=== PATIENT | female | born 1980 | race Two or more races ===

== ENCOUNTER → 2020-03-14 | Outpatient (CLI) | payer OTHER | END | disposition home or self-care (01) | LOC: ECT 10:46 | DX: F33.2 Major depressive disorder, recurrent severe without psychotic features (principal); F41.9 Anxiety disorder, unspecified; Z79.899 Other long term (current) drug therapy; Z91.5 Personal history of self-harm; Z81.8 Family history of other mental and behavioral disorders ==

== ENCOUNTER 2020-03-24 08:51 | Outpatient (RCR) | payer OTHER ==
[~2020-03-24] VITALS: Ht 170.2 cm; Wt 64.0 kg
[~2020-03-24 08:51] MED LIST: Methohexital Sodium Syr 100mg/10ml IVP ONE; Midazolam 2mg/2ml Inj ONE; NS 500ML ONE; Succinylcholine 20mg/ml 10ml vial ONE
[2020-03-24] MEDS ORDERED: Methohexital Sodium Syr 100mg/10ml IVP ONE (08:52)
[2020-03-24] MEDS ORDERED: NS 500ML ONE (08:52)
[2020-03-24] MEDS ORDERED: Ketorolac 60mg Inj IM ONE (08:52)
[2020-03-24] MEDS ORDERED: Succinylcholine 20mg/ml 10ml vial ONE (08:52)
[2020-03-24 11:05] VITALS: BP 128/82
[2020-03-24 11:10] VITALS: BP 123/62
[2020-03-24 11:15] VITALS: BP 124/57
[2020-03-24 11:20] VITALS: BP 128/72
[2020-03-24 11:56] VITALS: BP 124/80
[2020-03-26] MEDS ORDERED: Midazolam 2mg/2ml Inj ONE (06:00)
[2020-03-26] MEDS ORDERED: Ketorolac 30mg Inj ONE (06:00)
[2020-03-26] MEDS ORDERED: NS 500ML ONE (06:00)
[2020-03-26] MEDS ORDERED: Methohexital Sodium Syr 100mg/10ml IVP ONE (06:00)
[2020-03-26] MEDS ORDERED: Succinylcholine 20mg/ml 10ml vial ONE (06:00)
[2020-03-26 11:19] VITALS: BP 112/76
[2020-03-26] MEDS ORDERED: Atropine Sulfate 0.4mg/ml inj IVP PRN (11:45)
[2020-03-26] MEDS ORDERED: Lidocaine 2% 100mg/5ml Carp IV PRN (11:45)
[2020-03-26 11:46] VITALS: BP 111/66
[2020-03-26 11:51] VITALS: BP 124/75
[2020-03-26 11:56] VITALS: BP 121/71
[2020-03-26 12:01] VITALS: BP 120/71
[2020-03-28] MEDS ORDERED: NS 500ML ONE (06:00)
[2020-03-28] MEDS ORDERED: Succinylcholine 20mg/ml 10ml vial ONE (06:00)
[2020-03-28] MEDS ORDERED: Methohexital Sodium Syr 100mg/10ml IVP ONE (06:00)
[2020-03-28] MEDS ORDERED: Ketorolac 30mg Inj ONE (06:00)
[2020-03-28] MEDS ORDERED: Midazolam 2mg/2ml Inj ONE (06:00)
[2020-03-28 10:31] VITALS: BP 121/82
[2020-03-28 10:43] VITALS: BP 127/73
[2020-03-28 10:48] VITALS: BP 122/70
[2020-03-28 10:53] VITALS: BP 113/58
[2020-03-28 10:58] VITALS: BP 106/56
[2020-03-31 08:49] VITALS: BP 130/88
[2020-03-31 09:03] VITALS: BP 134/79
[2020-03-31 09:08] VITALS: BP 135/78
[2020-03-31 09:13] VITALS: BP 133/79
[2020-03-31 09:18] VITALS: BP 134/75
[2020-04-02] MEDS ORDERED: Succinylcholine 20mg/ml 10ml vial ONE (06:00)
[2020-04-02] MEDS ORDERED: Ketorolac 30mg Inj ONE (06:00)
[2020-04-02] MEDS ORDERED: NS 500ML ONE (06:00)
[2020-04-02] MEDS ORDERED: Methohexital Sodium Syr 100mg/10ml IVP ONE (06:00)
[2020-04-02 10:04] VITALS: BP 131/86
[2020-04-02 10:17] VITALS: BP 139/78
[2020-04-02 10:22] VITALS: BP 134/83
[2020-04-02 10:27] VITALS: BP 132/82
[2020-04-02 10:32] VITALS: BP 137/74
[2020-04-04] MEDS ORDERED: NS 500ML ONE (06:00)
[2020-04-04] MEDS ORDERED: Methohexital Sodium Syr 100mg/10ml IVP ONE (06:00)
[2020-04-04] MEDS ORDERED: Midazolam 2mg/2ml Inj ONE (06:00)
[2020-04-04] MEDS ORDERED: Succinylcholine 20mg/ml 10ml vial ONE (06:00)
[2020-04-04] MEDS ORDERED: Ketorolac 30mg Inj ONE (06:00)
[2020-04-04 10:12] VITALS: BP 136/89
[2020-04-04 10:27] VITALS: BP 140/88
[2020-04-04 10:32] VITALS: BP 122/74
[2020-04-04 10:37] VITALS: BP 119/62
[2020-04-04 10:42] VITALS: BP 118/53
[2020-04-07] MEDS ORDERED: Ketorolac 60mg Inj IM ONE (09:00)
[2020-04-07] MEDS ORDERED: Succinylcholine 20mg/ml 10ml vial ONE (09:00)
[2020-04-07] MEDS ORDERED: NS 500ML ONE (09:00)
[2020-04-07] MEDS ORDERED: Methohexital Sodium Syr 100mg/10ml IVP ONE (09:00)
[2020-04-07 10:15] VITALS: BP 134/87
[2020-04-07] MEDS ORDERED: Atropine Sulfate 0.4mg/ml inj IVP PRN (10:39)
[2020-04-07] MEDS ORDERED: Lidocaine 2% 100mg/5ml Carp IV PRN (10:39)
[2020-04-07 10:40] VITALS: BP 138/78
[2020-04-07 10:45] VITALS: BP 139/71
[2020-04-07 10:50] VITALS: BP 135/74
[2020-04-07 10:55] VITALS: BP 135/84
[2020-04-09] MEDS ORDERED: Methohexital Sodium Syr 100mg/10ml IVP ONE (06:00)
[2020-04-09] MEDS ORDERED: Succinylcholine 20mg/ml 10ml vial ONE (06:00)
[2020-04-09] MEDS ORDERED: Ketorolac 30mg Inj ONE (06:00)
[2020-04-09] MEDS ORDERED: NS 500ML ONE (06:00)
[2020-04-09 10:18] VITALS: BP 148/94
[2020-04-09] MEDS ORDERED: Lidocaine 2% 100mg/5ml Carp IV PRN (10:44)
[2020-04-09] MEDS ORDERED: Atropine Sulfate 0.4mg/ml inj IVP PRN (10:44)
[2020-04-09 10:45] VITALS: BP 140/66
[2020-04-09 10:50] VITALS: BP 151/92
[2020-04-09 10:55] VITALS: BP 145/82
[2020-04-09 11:00] VITALS: BP 152/79
[2020-04-11] MEDS ORDERED: NS 500ML ONE (06:00)
[2020-04-11] MEDS ORDERED: Ketorolac 30mg Inj ONE (06:00)
[2020-04-11] MEDS ORDERED: Succinylcholine 20mg/ml 10ml vial ONE (06:00)
[2020-04-11] MEDS ORDERED: Methohexital Sodium Syr 100mg/10ml IVP ONE (06:00)
[2020-04-11 09:52] VITALS: BP 148/93
[2020-04-11 10:05] VITALS: BP 145/88
[2020-04-11 10:10] VITALS: BP 142/75
[2020-04-11 10:15] VITALS: BP 150/83
[2020-04-11 10:20] VITALS: BP 145/79
== END 2020-04-15 | disposition home or self-care (01) ==
LOC: ECT 08:51
DX: F33.2 Major depressive disorder, recurrent severe without psychotic features (principal); F41.9 Anxiety disorder, unspecified
CPT/HCPCS: 90870; J0330; J1885; J2250; J2405; J7040

== ENCOUNTER 2020-04-16 08:21 | Outpatient (RCR) | payer OTHER ==
[~2020-04-16] VITALS: Ht 170.2 cm; Wt 64.0 kg
[~2020-04-16 08:21] MED LIST changes: +Ketorolac 30mg Inj ONE; -Midazolam 2mg/2ml Inj ONE
[2020-04-16 10:44] VITALS: BP 125/88
[2020-04-16 11:02] VITALS: BP 156/91
[2020-04-16 11:07] VITALS: BP 130/67
[2020-04-16 11:12] VITALS: BP 127/79
[2020-04-16 11:17] VITALS: BP 126/55
[2020-04-21] MEDS ORDERED: NS 500ML ONE (06:00)
[2020-04-21] MEDS ORDERED: Methohexital Sodium Syr 100mg/10ml IVP ONE (06:00)
[2020-04-21] MEDS ORDERED: Succinylcholine 20mg/ml 10ml vial ONE (06:00)
[2020-04-21] MEDS ORDERED: Ketorolac 30mg Inj ONE (06:00)
[2020-04-21 08:46] VITALS: BP 108/74
[2020-04-21] MEDS ORDERED: Atropine Sulfate 0.4mg/ml inj IVP PRN (09:04)
[2020-04-21] MEDS ORDERED: Lidocaine 2% 100mg/5ml Carp IV PRN (09:04)
[2020-04-21 09:05] VITALS: BP 112/64
[2020-04-21 09:10] VITALS: BP 129/93
[2020-04-21 09:15] VITALS: BP 125/67
[2020-04-21 09:20] VITALS: BP 137/66
[2020-04-30] MEDS ORDERED: NS 500ML ONE (08:00)
[2020-04-30] MEDS ORDERED: Ketorolac 60mg Inj IM ONE (08:00)
[2020-04-30] MEDS ORDERED: Succinylcholine 20mg/ml 10ml vial ONE (08:00)
[2020-04-30] MEDS ORDERED: Methohexital Sodium Syr 100mg/10ml IVP ONE (08:00)
[2020-04-30] MEDS ORDERED: Midazolam 2mg/2ml Inj ONE (08:00)
[2020-04-30 11:10] VITALS: BP 123/88
[2020-04-30 11:23] VITALS: BP 114/73
[2020-04-30 11:28] VITALS: BP 120/74
[2020-04-30 11:33] VITALS: BP 120/63
[2020-04-30 11:38] VITALS: BP 112/61
[2020-05-07] MEDS ORDERED: Succinylcholine 20mg/ml 10ml vial ONE (07:00)
[2020-05-07] MEDS ORDERED: Methohexital Sodium Syr 100mg/10ml IVP ONE (07:00)
[2020-05-07] MEDS ORDERED: Ketorolac 60mg Inj IM ONE (07:00)
[2020-05-07] MEDS ORDERED: NS 500ML ONE (07:00)
[2020-05-07] MEDS ORDERED: Midazolam 2mg/2ml Inj ONE (07:00)
[2020-05-07 08:27] VITALS: BP 115/78
[2020-05-07] MEDS ORDERED: Lidocaine 2% 100mg/5ml Carp IV PRN (08:49)
[2020-05-07] MEDS ORDERED: Atropine Sulfate 0.4mg/ml inj IVP PRN (08:49)
[2020-05-07 08:50] VITALS: BP 117/66
[2020-05-07 08:55] VITALS: BP 114/65
[2020-05-07 09:00] VITALS: BP 137/72
[2020-05-07 09:05] VITALS: BP 133/91
[2020-05-16] VITALS (7 sets, daily range): BP systolic 104–120; BP diastolic 57–77
[2020-05-16] MEDS ORDERED: NS 500ML ONE (09:00)
[2020-05-16] MEDS ORDERED: Succinylcholine 20mg/ml 10ml vial ONE (09:00)
[2020-05-16] MEDS ORDERED: Methohexital Sodium Syr 100mg/10ml IVP ONE (09:00)
[2020-05-16] MEDS ORDERED: Ketorolac 60mg Inj IM ONE (09:00)
== END 2020-05-16 | disposition home or self-care (01) ==
LOC: ECT 08:21
DX: F33.2 Major depressive disorder, recurrent severe without psychotic features (principal)
CPT/HCPCS: 82962; 90870; J0330; J1885; J2250; J2405; J7040

== ENCOUNTER 2020-05-30 06:38 | Outpatient (RCR) | payer OTHER ==
[~2020-05-30] VITALS: Ht 30.5 cm; Wt 0.5 kg
[2020-06-02] VITALS (7 sets, daily range): BP systolic 110–124; BP diastolic 61–84
[2020-06-02] MEDS ORDERED: NS 500ML ONE (08:00)
[2020-06-02] MEDS ORDERED: Methohexital Sodium Syr 100mg/10ml IVP ONE (08:00)
[2020-06-02] MEDS ORDERED: Succinylcholine 20mg/ml 10ml vial ONE (08:00)
[2020-06-02] MEDS ORDERED: Ketorolac 60mg Inj IM ONE (08:00)
[2020-06-02] MEDS ORDERED: Atropine Sulfate 0.4mg/ml inj IVP PRN (10:09)
== END 2020-06-16 | disposition home or self-care (01) ==
LOC: ECT 06:38
DX: F33.2 Major depressive disorder, recurrent severe without psychotic features (principal)
CPT/HCPCS: 90870; J0330; J2405; J7040

== ENCOUNTER 2020-06-18 10:24 | Outpatient (RCR) | payer OTHER ==
[2020-06-18] VITALS (7 sets, daily range): BP systolic 113–131; BP diastolic 70–92
[~2020-06-18] VITALS: Ht 170.2 cm; Wt 64.0 kg
[~2020-06-18 10:24] MED LIST changes: +Methohexita Syr 100mg/10ml IVP ONE; -Methohexital Sodium Syr 100mg/10ml IVP ONE
[2020-07-09] VITALS (7 sets, daily range): BP systolic 112–132; BP diastolic 48–86
[2020-07-09] MEDS ORDERED: NS 500ML ONE (06:00)
[2020-07-09] MEDS ORDERED: Ketorolac 30mg Inj ONE (06:00)
[2020-07-09] MEDS ORDERED: Methohexita Syr 100mg/10ml IVP ONE (06:00)
[2020-07-09] MEDS ORDERED: Succinylcholine 20mg/ml 10ml vial ONE (06:00)
[2020-07-09] MEDS ORDERED: Midazolam 2mg/2ml Inj ONE (06:00)
[2020-07-09] MEDS ORDERED: Atropine Sulfate 0.4mg/ml inj IVP PRN (09:09)
== END 2020-07-16 | disposition home or self-care (01) ==
LOC: ECT 10:24
DX: F33.2 Major depressive disorder, recurrent severe without psychotic features (principal)
CPT/HCPCS: 90870; J0330; J1885; J2250; J2405; J7040

== ENCOUNTER 2020-08-01 06:39 | Outpatient (RCR) | payer OTHER ==
[~2020-08-01] VITALS: Ht 30.5 cm; Wt 0.5 kg
[2020-08-01] VITALS (7 sets, daily range): BP systolic 129–144; BP diastolic 73–90
[2020-08-01] MEDS ORDERED: Midazolam 2mg/2ml Inj ONE (06:40)
[2020-08-01] MEDS ORDERED: Ketorolac 60mg Inj IM ONE (06:40)
[2020-08-01] MEDS ORDERED: NS 500ML ONE (06:40)
[2020-08-01] MEDS ORDERED: Succinylcholine 20mg/ml 10ml vial ONE (06:40)
[2020-08-01] MEDS ORDERED: Methohexital Sodium Syr 100mg/10ml IVP ONE (06:40)
== END 2020-08-16 | disposition home or self-care (01) ==
LOC: ECT 06:39
DX: F33.2 Major depressive disorder, recurrent severe without psychotic features (principal)
CPT/HCPCS: 90870; J0330; J2250; J2405; J7040

== ENCOUNTER 2020-08-20 05:44 | Outpatient (RCR) | payer OTHER ==
[2020-08-01 11:01] VITALS: BP 132/76
== END 2020-09-15 | disposition home or self-care (01) ==
LOC: ECT 05:44
DX: Z53.9 Procedure and treatment not carried out, unspecified reason (principal)